=== PATIENT | male | born 1955 | race Caucasian/White ===

== ENCOUNTER 2021-06-21 10:50 | Outpatient (CLI) | payer OTHER, SELFPAY ==
--- NOTE | 2021-06-21 11:05 | XR_ITS ---
WS: [id number] Lumbar spine with flexion, extension, and neutral lateral, 06/21/2021 Clinical Data: VERTEBROGENIC LOW BACK PAIN Comparison: None. Findings: No compression fractures or subluxation is seen there is degenerative disc narrowing at L5-S1. There is anterior osteophyte formation at all lumbar vertebral bodies.. No limitation of motion or subluxation is seen. XR/XR lumbar spine f/e only [id number] Impression: 1. Degenerative disc narrowing at L5-S1. 2. Osteoarthritis L1-L5. 3. Negative for limitation of motion or subluxation on flexion or extension.
== END 2021-06-21 10:51 | disposition home or self-care (01) ==
PROVIDERS: Visit Provider Physician Assistant
DX: M54.41 Lumbago with sciatica, right side (principal); M47.816 Spondylosis without myelopathy or radiculopathy, lumbar region
CPT/HCPCS: 72120

== ENCOUNTER 2021-08-29 12:19 | Emergency (ER) | payer OTHER, SELFPAY ==
[2021-08-29 12:31] VITALS: BP 153/77; PULSE 66; RESP 22; TEMP 36.6; O2SAT 95; BMI 35.8
--- NOTE | 2021-08-29 12:49 | US_ITS ---
WS: [id number] ULTRASOUND-GUIDED THERAPEUTIC PARACENTESIS Procedure, risks, and complications have been explained to the patient. Consent is obtained. Utilizing aseptic technique and 1% buffered lidocaine, a small dermatome was made through which a 5 F rench Yueh catheter was inserted. Approximately 1200 ml of clear peritoneal fluid was obtained witho ut difficulty. No complications encountered. US/US paracentesis abd w [id number] IMPRESSION: Uncomplicated paracentesis yielding 1200 ml of peritoneal fluid.
--- NOTE | 2021-08-29 12:57 | W.ED.ABDPA2 ---
Documented by User: DUSTIN Donovan 08/29/21 12:58 HPI - Abdominal Pain General: Chief Complaint: Abdominal Pain Stated Complaint: abdomen pain/ distention Time Seen by Provider: 08/29/21 14:42 History of Present Illness: HPI narrative: Patient presents with abdominal ascites. Also has bilateral extreme lower extremity edema. Patient history of liver failure awaiting liver transplant. Patient is never had a paracentesis done before but was sent here by primary care for paracentesis. Patient's had increased abdominal girth than 3 inches a last couple days. He does have some shortness of breath with fluid [facility] ED PFSH: Medical History (Updated 08/29/21 @ 18:10 by Golden Callaway MD) Cirrhosis of liver Surgical History (Updated 08/29/21 @ 17:36 by Matt Valladares DO) H/O exploratory laparotomy H/O neck surgery Social History (Updated 08/29/21 @ 17:32 by Matt Valladares DO) Smoking and tobacco status: current some day smoker Alcohol intake: former Course Vital Signs: Vital signs: Vital Signs Temperature 97.9 F 08/29/21 12:31 Pulse Rate 81 08/29/21 18:38 Respiratory Rate 17 08/29/21 18:00 Blood Pressure 132/76 08/29/21 18:38 Pulse Oximetry 99 08/29/21 18:38 MDM - Abdominal Pain MDM Narrative: Medical decision making narrative: Brief history and physical exam was performed as part of the triage process. Due to current ED wait time patient will be placed in waiting room until a room becomes available. Explained to patient he/she will be seen in order of severity. Patient is currently safe to wait in the waiting room until we can get them placed. Patient informed that if condition worsens at any time to please let the front end ui developer know. I spoke with Dr. Adams concerning this patient and also spoke to ultrasound and they are going recommend for paracentesis. Lab Data: Labs: Lab Results 08/29/21 08/29/21 08/29/21 15:17 15:17 15:17 WBC Cancelled Corrected WBC Cancelled RBC Cancelled Hgb Cancelled Hct Cancelled MCV Cancelled MCH Cancelled MCHC Cancelled RDW Cancelled Plt Count Cancelled MPV Cancelled Gran % Cancelled Neut % (Auto) Cancelled Lymph % (Auto) Cancelled [place] % (Auto) Cancelled Eos % (Auto) Cancelled Baso % (Auto) Cancelled Neut # (Auto) Cancelled Lymph # (Auto) Cancelled [place] # (Auto) Cancelled Eos # (Auto) Cancelled Baso # (Auto) Cancelled Absolute Gran (aut o) Cancelled Nucleated RBC % (a uto) Cancelled Nucleated RBCs # Cancelled PT 16.90 SECONDS H S ECONDS (12.1-14.9) INR 1.33 H (0.8-1.2) APTT 36.2 SECONDS SECO NDS (23.9-36.7) Sodium 132 mmol/L L mmol /L (136-145) Potassium 4.0 mmol/L mmol/L (3.5-5.1) Chloride 101 mmol/L mmol/L (98-107) Carbon Dioxide 21 mmol/L L mmol/ L (22-29) Anion Gap 14.0 (5-19) BUN 10 mg/dL mg/dL (8-23) Creatinine 0.5 mg/dL L mg/dL (0.7-1.2) GFR Calculation 167.4 mL/min H mL /min (90-130) Glucose 102 mg/dL mg/dL (65-115) Calculated Osmolal ity 273 mOsm/kg L mOs m/kg (285-295) Calcium 8.1 mg/dL L mg/dL (8.5-10.5) Total Bilirubin 1.1 mg/dL mg/dL (0.15-1.2) AST 48 U/L H U/L (0-40) ALT 32 U/L U/L (0-41) Alkaline Phosphata se 113 IU/L IU/L (40-130) Ammonia Troponin T Baselin e Troponin T 120 Min [place] Troponin T NT-Pro-B Natriuret Pep 294 pg/mL H pg/mL (0-125) Total Protein 7.8 g/dL g/dL (6.6-8.7) Albumin 3.7 g/dL g/dL (3.5-5.2) Globulin 4.1 g/dL g/dL (1.3-4.6) Lipase 32 U/L U/L (13-60) Urine Color Urine Appearance Urine pH Ur Specific Gravit y Urine Protein Urine Glucose (UA) Urine Ketones Urine Blood Urine Nitrate Urine Bilirubin Urine Urobilinogen Ur Leukocyte Jessica ase 08/29/21 08/29/21 08/29/21 15:17 15:17 15:50 WBC Corrected WBC RBC Hgb Hct MCV MCH MCHC RDW Plt Count MPV Gran % Neut % (Auto) Lymph % (Auto) [place] % (Auto) Eos % (Auto) Baso % (Auto) Neut # (Auto) Lymph # (Auto) [place] # (Auto) Eos # (Auto) Baso # (Auto) Absolute Gran (aut o) Nucleated RBC % (a uto) Nucleated RBCs # PT INR APTT Sodium Potassium Chloride Carbon Dioxide Anion Gap BUN Creatinine GFR Calculation Glucose Calculated Osmolal ity Calcium Total Bilirubin AST ALT Alkaline Phosphata se Ammonia 41 umol/L umol/L (16-60) Troponin T Baselin e 16 ng/L H ng/L (0-15) Troponin T 120 Min [place] Troponin T NT-Pro-B Natriuret Pep Total Protein Albumin Globulin Lipase Urine Color Yellow (Yellow) Urine Appearance Clear (CLEAR) Urine pH 7 (5-7) Ur Specific Gravit y 1.010 (1.005-1.030) Urine Protein Neg (Negative) Urine Glucose (UA) Norm (Normal) Urine Ketones Negative (Negative) Urine Blood Neg (Negative) Urine Nitrate Negative (Negative) Urine Bilirubin Neg (Negative) Urine Urobilinogen Norm mg/dL mg/dL (Negative) Ur Leukocyte Jessica ase Negative (Negative) 08/29/21 08/29/21 16:48 17:32 WBC 1.8 10^3/uL L 10^ 3/uL (4.0-10.0) Corrected WBC RBC 3.46 10^6/uL L 10 ^6/uL (4.1-5.3) Hgb 7.9 g/dL L g/dL (11.7-16.6) Hct 27.2 % L % (42.0-52.0) MCV 78.6 fl L fl (80-94) MCH 22.8 pg L pg (28.0-34.0) MCHC 29.0 g/dL L g/dL (30.0-36.0) RDW 14.6 % % (12.1-15.1) Plt Count 59 10^3/cmm L 10^ 3/cmm (130-400) MPV 10.2 fL fL (7.4-10.4) Gran % Neut % (Auto) 75.5 % % Lymph % (Auto) 12.0 % % [place] % (Auto) 9.2 % % Eos % (Auto) 2.2 % % Baso % (Auto) 1.1 % % Neut # (Auto) 1.39 10^3/uL L 10 ^3/uL (1.8-7.7) Lymph # (Auto) 0.2 10^3/uL L 10^ 3/uL (0.8-4.8) [place] # (Auto) 0.2 10^3/uL 10^3/ uL (0.2-0.9) Eos # (Auto) 0.0 10^3/uL 10^3/ uL (0.0-0.8) Baso # (Auto) 0.0 10^3/uL 10^3/ uL (0.0-0.1) Absolute Gran (aut o) Nucleated RBC % (a uto) 0 % % Nucleated RBCs # 0.0 /100WBC /100W BC PT INR APTT Sodium Potassium Chloride Carbon Dioxide Anion Gap BUN Creatinine GFR Calculation Glucose Calculated Osmolal ity Calcium Total Bilirubin AST ALT Alkaline Phosphata se Ammonia Troponin T Baselin e Troponin T 120 Min [place] 13.91 ng/L ng/L (0-15) [place] Troponin T -2.09 ABS# L ABS# (0-10) NT-Pro-B Natriuret Pep Total Protein Albumin Globulin Lipase Urine Color Urine Appearance Urine pH Ur Specific Gravit y Urine Protein Urine Glucose (UA) Urine Ketones Urine Blood Urine Nitrate Urine Bilirubin Urine Urobilinogen Ur Leukocyte Jessica ase Discharge Plan Discharge Patient Disposition: Home Clinical Impression: Cirrhosis of liver, Abdominal pain Condition: Stable Discharge Orders: Discharge ED (Routine); Ordered 08/29/21 Ordered By: Golden Callaway Discharge Diet: Advance as tolerated Discharge Activity: Resume usual activity Patient Instructions: Abdominal Pain (ED) Coding Level of Care Code ED Wharf Tally Clerk for Chg Fwd Exam Comprehensive Documented by User: Matt Valladares DO 08/30/21 05:37 HPI - Abdominal Pain General: Chief Complaint: Abdominal Pain Stated Complaint: abdomen pain/ distention Time Seen by Provider: 08/29/21 14:42 History of Present Illness: HPI narrative: 66-year-old male presents emergency room complaining of abdominal pain and discomfort. He had some chest pain at times as well. He has a history of alcoholic liver cirrhosis and is in the process of getting worked up for transplant.. He at times is getting chest discomfort. He reports some intermittent shortness of breath with activity. Activity does not particularly worsen his chest pain. Denies any diaphoresis. No known history of coronary artery disease patient is not diabetic. He has not had any upper GI bleed or esophageal varices in the past that he is aware of. MD elicited complaint: abdominal pain Pertinent past history: other (End-stage liver disease) Onset (ago): day(s) Pain Consistency: constant Location: Diffuse Severity: mild Quality: cramping Radiation: epigastric Exacerbating factors: other (Exertion) Relieving factors: rest Associated Symptoms: Reports anorexia, bloating, GI cramping and poor appetite; Denies belching, change in bowel habits, change in stool character, chills, coffee ground emesis, constipation, diarrhea, dyspepsia, dysuria, excessive flatus, fever(s), heartburn, hematochezia, hematuria, hematemesis, fecal incontinence, loose stools, melena, nausea, syncope and vomiting Review of Systems Const: Denies: fever(s) or chills ENMT: Denies: throat pain, ear or mastoid pain, nasal discharge or nasal congestion Card: Denies: syncope Resp: Denies: dyspnea, productive cough or non-productive cough GI: Reports: bloating and GI cramping; Denies: nausea, vomiting, hematemesis, coffee ground emesis, heartburn, diarrhea, constipation, belching, excessive flatus, fecal incontinence, change in bowel habits, change in stool character, hematochezia or melena : Denies: dysuria or hematuria Skin/Breast: Denies: rash or pruritus PFSH ED PFSH: Medical History (Updated 08/29/21 @ 18:10 by Golden Callaway MD) Cirrhosis of liver Surgical History (Updated 08/29/21 @ 17:36 by Matt Valladares DO) H/O exploratory laparotomy H/O neck surgery Social History (Updated 08/29/21 @ 17:32 by Matt Valladares DO) Smoking and tobacco status: current some day smoker Alcohol intake: former Physical Exam Const: COMMON NORMALS: no acute distress GENERAL APPEARANCE: cooperative and comfortable ORIENTATION/CONSCIOUSNESS: Yes awake, Yes oriented to person, Yes oriented to place and Yes oriented to time HENMT: COMMON NORMALS: normocephalic, atraumatic and hearing grossly normal bilaterally HEAD & SCALP: normocephalic and atraumatic Neck/C-Spine: COMMON NORMALS: no JVD Resp: COMMON NORMALS: normal respiratory effort, No retractions, No use of accessory muscles and clear to auscultation bilaterally AUSCULTATION: clear to auscultation bilaterally Cardio: COMMON NORMALS: no JVD, regular rate, regular rhythm and No murmurs present (Cardio) RATE: regular rate RHYTHM: regular rhythm GI: COMMON NORMALS: Soft to palpation and No hepatosplenomegaly present INSPECTION: Yes Fluid wave present (Minimal) AUSCULTATION: Yes normoactive bowel sounds PALPATION: Yes Soft to palpation, Yes Tenderness to palpation present (GI) (Mild diffuse tenderness), No Guarding due to palpation present (GI) and Yes No hepatosplenomegaly present PERCUSSION: dullness to percussion and Fluid wave present (Minimal) Extremity: COMMON NORMALS: normal to inspection, capillary refill normal, no clubbing, cyanosis or edema, no calf tenderness and no pedal edema Neuro: SENSORIUM/ORIENTATION: Yes oriented to person, Yes oriented to place and Yes oriented to time Skin: COMMON NORMALS: no rashes or lesions noted GENERAL SKIN EXAM: no rashes or lesions noted Course Vital Signs: Vital signs: Vital Signs Temperature 97.9 F 08/29/21 12:31 Pulse Rate 81 08/29/21 18:38 Respiratory Rate 17 08/29/21 18:00 Blood Pressure 132/76 08/29/21 18:38 Pulse Oximetry 99 08/29/21 18:38 MDM - Abdominal Pain MDM Narrative: Medical decision making narrative: Labs pending at change of shift. Care turned over to Dr. Callaway see his note final diagnosis and disposition. Lab Data: Labs: Lab Results 08/29/21 08/29/21 08/29/21 15:17 15:17 15:17 WBC Cancelled Corrected WBC Cancelled RBC Cancelled Hgb Cancelled Hct Cancelled MCV Cancelled MCH Cancelled MCHC Cancelled RDW Cancelled Plt Count Cancelled MPV Cancelled Gran % Cancelled Neut % (Auto) Cancelled Lymph % (Auto) Cancelled [place] % (Auto) Cancelled Eos % (Auto) Cancelled Baso % (Auto) Cancelled Neut # (Auto) Cancelled Lymph # (Auto) Cancelled [place] # (Auto) Cancelled Eos # (Auto) Cancelled Baso # (Auto) Cancelled Absolute Gran (aut o) Cancelled Nucleated RBC % (a uto) Cancelled Nucleated RBCs # Cancelled PT 16.90 SECONDS H S ECONDS (12.1-14.9) INR 1.33 H (0.8-1.2) APTT 36.2 SECONDS SECO NDS (23.9-36.7) Sodium 132 mmol/L L mmol /L (136-145) Potassium 4.0 mmol/L mmol/L (3.5-5.1) Chloride 101 mmol/L mmol/L (98-107) Carbon Dioxide 21 mmol/L L mmol/ L (22-29) Anion Gap 14.0 (5-19) BUN 10 mg/dL mg/dL (8-23) Creatinine 0.5 mg/dL L mg/dL (0.7-1.2) GFR Calculation 167.4 mL/min H mL /min (90-130) Glucose 102 mg/dL mg/dL (65-115) Calculated Osmolal ity 273 mOsm/kg L mOs m/kg (285-295) Calcium 8.1 mg/dL L mg/dL (8.5-10.5) Total Bilirubin 1.1 mg/dL mg/dL (0.15-1.2) AST 48 U/L H U/L (0-40) ALT 32 U/L U/L (0-41) Alkaline Phosphata se 113 IU/L IU/L (40-130) Ammonia Troponin T Baselin e Troponin T 120 Min [place] Troponin T NT-Pro-B Natriuret Pep 294 pg/mL H pg/mL (0-125) Total Protein 7.8 g/dL g/dL (6.6-8.7) Albumin 3.7 g/dL g/dL (3.5-5.2) Globulin 4.1 g/dL g/dL (1.3-4.6) Lipase 32 U/L U/L (13-60) Urine Color Urine Appearance Urine pH Ur Specific Gravit y Urine Protein Urine Glucose (UA) Urine Ketones Urine Blood Urine Nitrate Urine Bilirubin Urine Urobilinogen Ur Leukocyte Jessica ase 08/29/21 08/29/21 08/29/21 15:17 15:17 15:50 WBC Corrected WBC RBC Hgb Hct MCV MCH MCHC RDW Plt Count MPV Gran % Neut % (Auto) Lymph % (Auto) [place] % (Auto) Eos % (Auto) Baso % (Auto) Neut # (Auto) Lymph # (Auto) [place] # (Auto) Eos # (Auto) Baso # (Auto) Absolute Gran (aut o) Nucleated RBC % (a uto) Nucleated RBCs # PT INR APTT Sodium Potassium Chloride Carbon Dioxide Anion Gap BUN Creatinine GFR Calculation Glucose Calculated Osmolal ity Calcium Total Bilirubin AST ALT Alkaline Phosphata se Ammonia 41 umol/L umol/L (16-60) Troponin T Baselin e 16 ng/L H ng/L (0-15) Troponin T 120 Min [place] Troponin T NT-Pro-B Natriuret Pep Total Protein Albumin Globulin Lipase Urine Color Yellow (Yellow) Urine Appearance Clear (CLEAR) Urine pH 7 (5-7) Ur Specific Gravit y 1.010 (1.005-1.030) Urine Protein Neg (Negative) Urine Glucose (UA) Norm (Normal) Urine Ketones Negative (Negative) Urine Blood Neg (Negative) Urine Nitrate Negative (Negative) Urine Bilirubin Neg (Negative) Urine Urobilinogen Norm mg/dL mg/dL (Negative) Ur Leukocyte Jessica ase Negative (Negative) 08/29/21 08/29/21 16:48 17:32 WBC 1.8 10^3/uL L 10^ 3/uL (4.0-10.0) Corrected WBC RBC 3.46 10^6/uL L 10 ^6/uL (4.1-5.3) Hgb 7.9 g/dL L g/dL (11.7-16.6) Hct 27.2 % L % (42.0-52.0) MCV 78.6 fl L fl (80-94) MCH 22.8 pg L pg (28.0-34.0) MCHC 29.0 g/dL L g/dL (30.0-36.0) RDW 14.6 % % (12.1-15.1) Plt Count 59 10^3/cmm L 10^ 3/cmm (130-400) MPV 10.2 fL fL (7.4-10.4) Gran % Neut % (Auto) 75.5 % % Lymph % (Auto) 12.0 % % [place] % (Auto) 9.2 % % Eos % (Auto) 2.2 % % Baso % (Auto) 1.1 % % Neut # (Auto) 1.39 10^3/uL L 10 ^3/uL (1.8-7.7) Lymph # (Auto) 0.2 10^3/uL L 10^ 3/uL (0.8-4.8) [place] # (Auto) 0.2 10^3/uL 10^3/ uL (0.2-0.9) Eos # (Auto) 0.0 10^3/uL 10^3/ uL (0.0-0.8) Baso # (Auto) 0.0 10^3/uL 10^3/ uL (0.0-0.1) Absolute Gran (aut o) Nucleated RBC % (a uto) 0 % % Nucleated RBCs # 0.0 /100WBC /100W BC PT INR APTT Sodium Potassium Chloride Carbon Dioxide Anion Gap BUN Creatinine GFR Calculation Glucose Calculated Osmolal ity Calcium Total Bilirubin AST ALT Alkaline Phosphata se Ammonia Troponin T Baselin e Troponin T 120 Min [place] 13.91 ng/L ng/L (0-15) [place] Troponin T -2.09 ABS# L ABS# (0-10) NT-Pro-B Natriuret Pep Total Protein Albumin Globulin Lipase Urine Color Urine Appearance Urine pH Ur Specific Gravit y Urine Protein Urine Glucose (UA) Urine Ketones Urine Blood Urine Nitrate Urine Bilirubin Urine Urobilinogen Ur Leukocyte Jessica ase Discharge Plan Discharge Patient Disposition: Home Clinical Impression: Cirrhosis of liver, Abdominal pain Condition: Stable Discharge Orders: Discharge ED (Routine); Ordered 08/29/21 Ordered By: Golden Callaway Discharge Diet: Advance as tolerated Discharge Activity: Resume usual activity Patient Instructions: Abdominal Pain (ED) Coding Level of Care Code ED Wharf Tally Clerk for Chg Fwd Exam Comprehensive Documented by User: Golden Callaway MD 08/29/21 18:21 HPI - Abdominal Pain General: Chief Complaint: Abdominal Pain Stated Complaint: abdomen pain/ distention Time Seen by Provider: 08/29/21 14:42 PFSH ED PFSH: Medical History (Updated 08/29/21 @ 18:10 by Golden Callaway MD) Cirrhosis of liver Surgical History (Updated 08/29/21 @ 17:36 by Matt Valladares DO) H/O exploratory laparotomy H/O neck surgery Social History (Updated 08/29/21 @ 17:32 by Matt Valladares DO) Smoking and tobacco status: current some day smoker Alcohol intake: former Course Vital Signs: Vital signs: Vital Signs Temperature 97.9 F 08/29/21 12:31 Pulse Rate 81 08/29/21 18:38 Respiratory Rate 17 08/29/21 18:00 Blood Pressure 132/76 08/29/21 18:38 Pulse Oximetry 99 08/29/21 18:38 MDM - Abdominal Pain MDM Narrative: Medical decision making narrative: Patient presents here with abdominal pain likely from cirrhosis he had a paracentesis here blood work here is all normal he is stable for discharge is to follow-up with PCP and return if worsening. Lab Data: Labs: Lab Results 08/29/21 08/29/21 08/29/21 15:17 15:17 15:17 WBC Cancelled Corrected WBC Cancelled RBC Cancelled Hgb Cancelled Hct Cancelled MCV Cancelled MCH Cancelled MCHC Cancelled RDW Cancelled Plt Count Cancelled MPV Cancelled Gran % Cancelled Neut % (Auto) Cancelled Lymph % (Auto) Cancelled [place] % (Auto) Cancelled Eos % (Auto) Cancelled Baso % (Auto) Cancelled Neut # (Auto) Cancelled Lymph # (Auto) Cancelled [place] # (Auto) Cancelled Eos # (Auto) Cancelled Baso # (Auto) Cancelled Absolute Gran (aut o) Cancelled Nucleated RBC % (a uto) Cancelled Nucleated RBCs # Cancelled PT 16.90 SECONDS H S ECONDS (12.1-14.9) INR 1.33 H (0.8-1.2) APTT 36.2 SECONDS SECO NDS (23.9-36.7) Sodium 132 mmol/L L mmol /L (136-145) Potassium 4.0 mmol/L mmol/L (3.5-5.1) Chloride 101 mmol/L mmol/L (98-107) Carbon Dioxide 21 mmol/L L mmol/ L (22-29) Anion Gap 14.0 (5-19) BUN 10 mg/dL mg/dL (8-23) Creatinine 0.5 mg/dL L mg/dL (0.7-1.2) GFR Calculation 167.4 mL/min H mL /min (90-130) Glucose 102 mg/dL mg/dL (65-115) Calculated Osmolal ity 273 mOsm/kg L mOs m/kg (285-295) Calcium 8.1 mg/dL L mg/dL (8.5-10.5) Total Bilirubin 1.1 mg/dL mg/dL (0.15-1.2) AST 48 U/L H U/L (0-40) ALT 32 U/L U/L (0-41) Alkaline Phosphata se 113 IU/L IU/L (40-130) Ammonia Troponin T Baselin e Troponin T 120 Min [place] Troponin T NT-Pro-B Natriuret Pep 294 pg/mL H pg/mL (0-125) Total Protein 7.8 g/dL g/dL (6.6-8.7) Albumin 3.7 g/dL g/dL (3.5-5.2) Globulin 4.1 g/dL g/dL (1.3-4.6) Lipase 32 U/L U/L (13-60) Urine Color Urine Appearance Urine pH Ur Specific Gravit y Urine Protein Urine Glucose (UA) Urine Ketones Urine Blood Urine Nitrate Urine Bilirubin Urine Urobilinogen Ur Leukocyte Jessica ase 01/18/22 01/18/22 01/18/22 15:17 15:17 15:50 WBC Corrected WBC RBC Hgb Hct MCV MCH MCHC RDW Plt Count MPV Gran % Neut % (Auto) Lymph % (Auto) [place] % (Auto) Eos % (Auto) Baso % (Auto) Neut # (Auto) Lymph # (Auto) [place] # (Auto) Eos # (Auto) Baso # (Auto) Absolute Gran (aut o) Nucleated RBC % (a uto) Nucleated RBCs # PT INR APTT Sodium Potassium Chloride Carbon Dioxide Anion Gap BUN Creatinine GFR Calculation Glucose Calculated Osmolal ity Calcium Total Bilirubin AST ALT Alkaline Phosphata se Ammonia 41 umol/L umol/L (16-60) Troponin T Baselin e 16 ng/L H ng/L (0-15) Troponin T 120 Min [place] Troponin T NT-Pro-B Natriuret Pep Total Protein Albumin Globulin Lipase Urine Color Yellow (Yellow) Urine Appearance Clear (CLEAR) Urine pH 7 (5-7) Ur Specific Gravit y 1.010 (1.005-1.030) Urine Protein Neg (Negative) Urine Glucose (UA) Norm (Normal) Urine Ketones Negative (Negative) Urine Blood Neg (Negative) Urine Nitrate Negative (Negative) Urine Bilirubin Neg (Negative) Urine Urobilinogen Norm mg/dL mg/dL (Negative) Ur Leukocyte Jessica ase Negative (Negative) 08/29/21 08/29/21 16:48 17:32 WBC 1.8 10^3/uL L 10^ 3/uL (4.0-10.0) Corrected WBC RBC 3.46 10^6/uL L 10 ^6/uL (4.1-5.3) Hgb 7.9 g/dL L g/dL (11.7-16.6) Hct 27.2 % L % (42.0-52.0) MCV 78.6 fl L fl (80-94) MCH 22.8 pg L pg (28.0-34.0) MCHC 29.0 g/dL L g/dL (30.0-36.0) RDW 14.6 % % (12.1-15.1) Plt Count 59 10^3/cmm L 10^ 3/cmm (130-400) MPV 10.2 fL fL (7.4-10.4) Gran % Neut % (Auto) 75.5 % % Lymph % (Auto) 12.0 % % [place] % (Auto) 9.2 % % Eos % (Auto) 2.2 % % Baso % (Auto) 1.1 % % Neut # (Auto) 1.39 10^3/uL L 10 ^3/uL (1.8-7.7) Lymph # (Auto) 0.2 10^3/uL L 10^ 3/uL (0.8-4.8) [place] # (Auto) 0.2 10^3/uL 10^3/ uL (0.2-0.9) Eos # (Auto) 0.0 10^3/uL 10^3/ uL (0.0-0.8) Baso # (Auto) 0.0 10^3/uL 10^3/ uL (0.0-0.1) Absolute Gran (aut o) Nucleated RBC % (a uto) 0 % % Nucleated RBCs # 0.0 /100WBC /100W BC PT INR APTT Sodium Potassium Chloride Carbon Dioxide Anion Gap BUN Creatinine GFR Calculation Glucose Calculated Osmolal ity Calcium Total Bilirubin AST ALT Alkaline Phosphata se Ammonia Troponin T Baselin e Troponin T 120 Min [place] 13.91 ng/L ng/L (0-15) [place] Troponin T -2.09 ABS# L ABS# (0-10) NT-Pro-B Natriuret Pep Total Protein Albumin Globulin Lipase Urine Color Urine Appearance Urine pH Ur Specific Gravit y Urine Protein Urine Glucose (UA) Urine Ketones Urine Blood Urine Nitrate Urine Bilirubin Urine Urobilinogen Ur Leukocyte Jessica ase Discharge Plan Discharge Patient Disposition: Home Clinical Impression: Cirrhosis of liver, Abdominal pain Condition: Stable Discharge Orders: Discharge ED (Routine); Ordered 08/29/21 Ordered By: Golden Callaway Discharge Diet: Advance as tolerated Discharge Activity: Resume usual activity Patient Instructions: Abdominal Pain (ED) Coding Level of Care Code ED Wharf Tally Clerk for Tomg Fwd Exam Comprehensive
[2021-08-29 15:09] VITALS: BP 171/85; PULSE 66; RESP 18; O2SAT 100
--- NOTE | 2021-08-29 15:18 | ECG_ITS ---
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 Measurements Intervals [place] Rate: 51 P: 38 NE: 192 QRS: 116 QRSD: 162 T: 22 QT: 492 QTc: 455 Interpretive Statements SINUS BRADYCARDIA WITH SINUS ARRHYTHMIA LEFT BUNDLE BRANCH BLOCK [120+ ms QRS DURATION, 80+ ms Q/S IN V1/V2, 85+ ms R IN I/aVL/V5/V6] No previous ECG available for comparison Electronically Signed On 08-30-2021 17:42:40 DETECTIVE SERGEANT by Tiago Avendano M.D. [id number]
[2021-08-29 15:46] LABS: INR 1.33 (0.8-1.2)
[2021-08-29 15:47] LABS: Partial Thromboplastin Time 36.2 SECONDS (23.9-36.7)
[2021-08-29 15:58] LABS: Troponin(5th) Baseline 16 ng/L (0-15)
[2021-08-29 16:00] VITALS: BP 125/70; PULSE 57; RESP 20; O2SAT 98
[2021-08-29 16:03] LABS: Ammonia 41 umol/L (16-60)
[2021-08-29 16:05] LABS: Add Urine Microscopic? NO; Charge for UA Resulting for Rev
[2021-08-29 16:12] LABS: Bilirubin Urine Neg (Negative); Blood Urine Neg (Negative); Glucose Urine UA Norm (Normal); Ketones Urine Negative (Negative); Leukocyte Esterase Urine Negative (Negative); Nitrate Urine Negative (Negative); Protein Urine Neg (Negative); Urine Appearance Clear (CLEAR); Urine Color Yellow (Yellow); Urobilinogen Urine Norm (Negative); pH Urine 7 (5-7)
[2021-08-29 16:15] LABS: Alanine Aminotransferase 32 U/L (0-41); Albumin Level 3.7 g/dL (3.5-5.2); Alkaline Phosphatase 113 IU/L (40-130); Aspartate Amino Transferase 48 U/L (0-40); Blood Urea Nitrogen 10 mg/dL (8-23); Calcium 8.1 mg/dL (8.5-10.5); Carbon Dioxide 21 mmol/L (22-29); Chloride 101 mmol/L (98-107); Globulin 4.1 g/dL (1.3-4.6); Glomerular Filtration Rate 167.4 mL/min (90-130); Glucose 102 mg/dL (65-115); Lipase 32 U/L (13-60); NT Pro B Type Natriuretic Pept 294 pg/mL (0-125); Osmolality Calculated 273 mOsm/kg (285-295); Sodium 132 mmol/L (136-145); Total Bilirubin 1.1 mg/dL (0.15-1.2); Total Protein 7.8 g/dL (6.6-8.7)
[2021-08-29 17:00] VITALS: BP 143/66; PULSE 86; RESP 15; O2SAT 98
[2021-08-29 17:04] LABS: Basophils % 1.1 %; Eosinophils % 2.2 %; Hematocrit 27.2 % (42.0-52.0); Hemoglobin 7.9 g/dL (11.7-16.6); Lymphocytes # 0.2 10^3/uL (0.8-4.8); Mean Corpuscular Hemoglobin 22.8 pg (28.0-34.0); Mean Corpuscular Volume 78.6 fl (80-94); Mean Platelet Volume 10.2 fL (7.4-10.4); Monocytes # 0.2 10^3/uL (0.2-0.9); Monocytes % 9.2 %; Neutrophils # 1.39 10^3/uL (1.8-7.7); Neutrophils % 75.5 %; Nucleated Red Blood Cells % 0 %; Platelet Count 59 10^3/cmm (130-400); Red Blood Count 3.46 10^6/uL (4.1-5.3); Red Cell Distribution Width 14.6 % (12.1-15.1); White Blood Count 1.8 10^3/uL (4.0-10.0)
--- NOTE | 2021-08-29 17:18 | ECG_ITS ---
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 Measurements Intervals [place] Rate: 50 P: 46 ND: 190 QRS: 12 QRSD: 162 T: 51 QT: 522 QTc: 479 Interpretive Statements SINUS BRADYCARDIA WITH SINUS ARRHYTHMIA LEFT BUNDLE BRANCH BLOCK [120+ ms QRS DURATION, 80+ ms Q/S IN V1/V2, 85+ ms R IN I/aVL/V5/V6] Compared to ECG 08/29/2021 15:45:22 No significant changes Electronically Signed On 08-31-2021 19:28:[address] MAINTENANCE WORKER by Norma Jay M.D. [id number]
[2021-08-29 17:59] LABS: Troponin 5 2HR 13.91 ng/L (0-15)
[2021-08-29 18:00] VITALS: BP 135/69; PULSE 59; RESP 17; O2SAT 99
[2021-08-29 18:00] LABS: Troponin 5 2HR Delta -2.09 ABS# (0-10)
[2021-08-29 18:38] VITALS: BP 132/76; PULSE 81; O2SAT 99
== END 2021-08-29 18:39 | disposition home or self-care (01) ==
PROVIDERS: Family Medicine; Nurse Practitioner Family; Emergency Provider Emergency Medicine
DX: R10.9 Unspecified abdominal pain (principal); K74.60 Unspecified cirrhosis of liver; Z76.82 Awaiting organ transplant status; F17.210 Nicotine dependence, cigarettes, uncomplicated
CPT/HCPCS: 36415; 49083; 80053; 81003; 82140; 83690; 83880; 84484; 85025; 85610; 85730; 93005; 99283

== ENCOUNTER 2022-03-30 17:10 | Emergency (ER) | payer MEDICARE, SELFPAY ==
[2022-03-30 17:14] VITALS: BP 156/72; PULSE 54; RESP 16; TEMP 36.5; O2SAT 97; BMI 32.3
--- NOTE | 2022-03-30 17:28 | ECG_ITS ---
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 Measurements Intervals [place] Rate: 51 P: 31 [place]: 204 QRS: -42 QRSD: 176 T: 50 QT: 518 QTc: 481 Interpretive Statements SINUS BRADYCARDIA LEFT AXIS DEVIATION [QRS AXIS < -30] LEFT BUNDLE BRANCH BLOCK [120+ ms QRS DURATION, 80+ ms Q/S IN V1/V2, 85+ ms R IN I/aVL/V5/V6] Compared to ECG 08/29/2021 18:30:10 Left-axis deviation now present Sinus arrhythmia no longer present Electronically Signed On 03-30-2022 17:43:16 CDT by Kvng Mckeon M.D. [id number]
--- NOTE | 2022-03-30 17:43 | XRR_ITS ---
PROCEDURE INFORMATION: Exam: XR Chest Exam date and time: 03/30/2022 5:48 PM Age: 66 years old Clinical indication: Cough; Additional info: Covid + TECHNIQUE: Imaging protocol: Radiologic exam of the chest. Views: 1 view. COMPARISON: No relevant prior studies available. FINDINGS: Lungs: Unremarkable. No consolidation. Pleural spaces: Unremarkable. No pleural effusion. No pneumothorax. Heart/Mediastinum: Unremarkable. No cardiomegaly. Bones/joints: ACDF hardware noted in the lower cervical spine. Visualized osseous structures are intact. XR/XR chest 1V portable [id number] IMPRESSION: No acute findings.
--- NOTE | 2022-03-30 18:29 | ED_ITS ---
HPI - COVID General: Chief Complaint: Upper Respiratory Infection Stated Complaint: covid pnemonia Time Seen by Provider: 03/30/22 17:52 Triage information: Has fever, cough or shortness of breath . Exposure to COVID + person last 14 days History of Present Illness: Patient is a 66-year-old male comes to the ED with COVID symptoms. His symptoms started approximately 1 week ago. He tested positive for COVID-19 on Saturday, March 26 at his PCP. He is complaining of having a productive cough, burning pain in the lungs when he brings and fatigue. He says he has had COVID-19 before and currently his symptoms are a lot more mild than previous COVID infection. Patient was prescribed Z-Darren course on Saturday and just finished taking the last dose yesterday. Denies any nausea or vomiting. COVID 19 common symptoms: positive productive cough; negative fever(s), chills, non-productive cough, dyspnea, fatigue, headache(s), throat pain, nasal congestion, nausea, vomiting or diarrhea COVID 19 other sytmptoms: negative chest pain COVID Results: No Data to Display Review of Systems Const: Denies: fever(s), chills or fatigue Eyes: Denies: change in vision or eye discomfort ENMT: Denies: throat pain, odynophagia, nasal discharge or nasal congestion Card: Denies: chest pain, palpitations, edema, swelling of feet/ankles, dyspnea on exertion or orthopnea Resp: Reports: productive cough; Denies: dyspnea or non-productive cough GI: Denies: abdominal pain, nausea, vomiting, diarrhea, constipation or hematochezia : Denies: flank pain, difficulty urinating, dysuria or hematuria Musc: Denies: neck pain, back pain or extremity swelling Skin/Breast: Denies: rash or new lesions Neuro: Denies: headache(s), numbness in extremities or weakness in extremities PFSH ED PFSH: Medical History Cirrhosis of liver Surgical History H/O exploratory laparotomy H/O neck surgery Social History Smoking and tobacco status: current some day smoker Alcohol intake: former Physical Exam Const: COMMON NORMALS: no acute distress, patient oriented x3, healthy appearing and alert GENERAL APPEARANCE: cooperative and comfortable HENMT: COMMON NORMALS: normocephalic HEAD & SCALP: normocephalic MOUTH: Normal oral and palatal mucosa present THROAT: posterior oropharynx normal and uvula midline Neck/C-Spine: COMMON NORMALS: supple GENERAL: Yes normal visual inspection Resp: COMMON NORMALS: normal respiratory effort, No retractions, No use of accessory muscles and clear to auscultation bilaterally AUSCULTATION: clear to auscultation bilaterally Cardio: COMMON NORMALS: regular rate, regular rhythm, S1 normal heart sound present, S2 normal heart sound present, No gallops present (Cardio), No clicks present (Cardio), No murmurs present (Cardio) and Peripheral pulses 2+ throughout RATE: regular rate RHYTHM: regular rhythm HEART SOUNDS: S1 normal heart sound present and S2 normal heart sound present PERIPHERAL PULSES: Peripheral pulses 2+ throughout GI: COMMON NORMALS: Normal to inspection, nondistended, normoactive bowel sounds present, Soft to palpation, non-tender and no masses PALPATION: Yes Soft to palpation : COMMON NORMALS: Yes no CVA tenderness BLADDER/KIDNEY EXAM: Yes no CVA tenderness Back/Pelvis: COMMON NORMALS: no CVA tenderness Extremity: COMMON NORMALS: normal to inspection Neuro: COMMON NORMALS: patient oriented x3 SENSORIUM/ORIENTATION: Yes alert GAIT: Yes Normal gait present Skin: GENERAL SKIN EXAM: dry skin Course Vital Signs: Vital signs: Vital Signs Temperature 98.3 F 03/30/22 18:44 Pulse Rate 52 L 03/30/22 18:44 Respiratory Rate 16 03/30/22 17:14 Blood Pressure 156/72 03/30/22 17:14 Pulse Oximetry 97 03/30/22 18:44 Oxygen Delivery Me thod 03/30/22 17:14 [facility] - COVID Medical Decision Making Patient is a 66-year-old male comes to the ED with COVID-19. He had a positive COVID-19 test at PCP. He has a cough that is productive. He describes the symptoms as very mild. He just finished taking a Z-Darren. Vitals are stable. Patient appears nontoxic in no acute distress or pain. Exam is benign. Chest x-ray showed no acute findings. Patient was diagnosed with COVID-19 and was stable for discharge home. He was sent home with a prescription for prednisone and told to follow-up with his PCP in the next week for reevaluation. Return to ED precautions given. Patient understood and agreed with plan. Lab Data Radiology Impressions Chest X-Ray 03/30/22 17:43 IMPRESSION: No acute findings. No Data to Display Discharge Plan Discharge Patient Disposition: Home Clinical Impression: COVID-19 Condition: Stable Prescriptions: New prednisone 5 mg tablets,dose pack See Rx Instructions .ROUTE .COMPLEX Qty: 21 0RF Rx Instructions: prednisone 5 mg: take 8 tablets (40 mg) on Day 1; 7 tablets (35 mg) on Day 2; then decrease by 1 tablet every day until finished Discharge Orders: Discharge ED (Routine); Ordered 03/30/22 Ordered By: Ken Montelongo Discharge Diet: Regular Discharge Activity: Increase activity as tolerated Patient Instructions: COVID-19 (Coronavirus Disease 2019) (ED) Activity Restrictions/Additional Instructions: Follow-up with medical provider as directed in the next 5 to 7 days reevaluation. Check your oxygen levels at home using your pulse ox. Take medications as prescribed. Return to the ER or your medical provider if condition worsens. Please read and understand discharge instructions. Thank you for choosing [facility] for your healthcare needs today. Please realize this is an emergency room and that we are providing you with a medical screening exam and this may not be complete and all inclusive of all the testing and or work up that you may need to determine your ailment or severity of your illness. It is very important that you follow up as instructed or that you return to the Emergency Department should you have concerns or if your condition changes or worsens in any way. Coding Level of Care Code ED Manager Outpatient for Sandro Rod Exam Comprehensive
[2022-03-30 18:44] VITALS: PULSE 52; TEMP 36.8; O2SAT 97
== END 2022-03-30 18:59 | disposition home or self-care (01) ==
PROVIDERS: Emergency Provider Physician Assistant
DX: U07.1 COVID-19 (principal); F17.210 Nicotine dependence, cigarettes, uncomplicated
CPT/HCPCS: 71045; 93005; 99284

== ENCOUNTER 2022-11-20 13:31 | Emergency (ER) | payer MEDICARE, SELFPAY ==
[2022-11-20 13:47] VITALS: BP 137/69; PULSE 45; RESP 16; TEMP 36.8; O2SAT 96
--- NOTE | 2022-11-20 14:34 | USCV_ITS ---
Vel Bassett Age: 67 Gender: M : 1955 Exam Date: 11/20/2022 15:00 Ordering Phys: Ken Montelongo Technologist: Exam Location: [facility]_ Indication: bilat edema PROCEDURES: The venous duplex Doppler examination of both lower extremities was performed in the standard fashion. The following venous structures were evaluated: common femoral vein, profunda vein, proximal portion of the greater saphenous vein, superficial femoral vein, and the popliteal vein. In addition, the posterior tibial and peroneal trunk were evaluated. FINDINGS: Normal 2-D Doppler and augmentation and compressibility throughout the lower extremity venous structures. Additional imaging through the proximal calf veins also reveals no thrombus. Limited evaluation of the greater saphenous vein is patent with no thrombus. CONCLUSIONS No evidence of right lower extremity DVT. No evidence of left lower extremity DVT. Attila Wick MD (Electronically Signed) Final Date: 20 November 2022 16:59 S
--- NOTE | 2022-11-20 14:34 | XR_ITS ---
WS: [id number] EXAMINATION: XR chest 1V portable [id number] REASON FOR EXAM: low heart rate COMPARISON: 03/30/2022 ORDER DATE: 11/20/2022 2:37 PM TECHNIQUE: A single, portable frontal chest x-ray was obtained. X-RAY FINDINGS: The lungs are clear. Pleural spaces are clear. No pleural effusions or pneumothorax. Cardiomediastinal silhouette is normal. No evidence for pulmonary edema. Soft tissue and osseous structures are unremarkable. No tubes or lines are present. Cervical fusion change at C6-7. XR/XR chest 1V portable [id number] IMPRESSION: Unremarkable frontal portable chest x-ray.
--- NOTE | 2022-11-20 14:34 | ECG_ITS ---
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 Measurements Intervals [place] Rate: 46 P: 67 [place]: 206 QRS: 85 QRSD: 174 T: 15 QT: 531 QTc: 466 Interpretive Statements SINUS BRADYCARDIA INTRAVENTRICULAR CONDUCTION DELAY [130+ ms QRS DURATION] Compared to ECG 03/30/2022 17:33:34 Intraventricular conduction delay now present Left-axis deviation no longer present Left bundle-branch block no longer present Electronically Signed On 11-21-2022 2:19:00 CDT by Tiago Avendano M.D. [id number]
--- NOTE | 2022-11-20 14:35 | ED_ITS ---
Documented by User: SAURABH Hill 11/21/22 22:26 HPI - Extremity Problem General: Chief complaint: Extremity Problem,Nontraumatic Stated complaint: edema/rash on leg Time Seen by Provider: 11/20/22 13:55 History of Present Illness: Patient is a 67-year-old male comes to the ED with bilateral lower leg edema. Past medical history of liver cirrhosis. Patient's leg edema is a chronic issue but has gotten a lot worse over the past couple days. Patient is on 20 mg of furosemide a day. Patient also is concerned about his low heart rate that is around 45 bpm. He denies any symptoms. On his right lower leg by medial side of ankle patient has a red rash. Denies any pain with rash, warmth or itching. Patient was first seen at urgent care and they told patient to come here to the ED for further evaluation. Denies any chest pain, shortness of breath, hemoptysis, nausea/vomiting, abdominal pain, bladder or bowel symptoms. Associated symptoms: Reports rash; Deny chest pain or fever(s) Review of Systems Const: Denies: fever(s), chills or fatigue Eyes: Denies: change in vision or eye discomfort ENMT: Denies: throat pain, odynophagia, nasal discharge or nasal congestion Card: Denies: chest pain, palpitations, edema, swelling of feet/ankles, dyspnea on exertion or orthopnea Resp: Denies: dyspnea, productive cough or non-productive cough GI: Denies: abdominal pain, nausea, vomiting, diarrhea, constipation or hematochezia : Denies: flank pain, difficulty urinating, dysuria or hematuria Musc: Reports: extremity swelling (Bilateral leg edema); Denies: neck pain or back pain Skin/Breast: Reports: rash; Denies: new lesions Neuro: Denies: headache(s), numbness in extremities or weakness in extremities [facility] ED PFSH: Medical History Cirrhosis of liver Surgical History H/O exploratory laparotomy H/O neck surgery Social History Smoking and tobacco status: current some day smoker Alcohol intake: former Physical Exam Const: COMMON NORMALS: no acute distress, patient oriented x3 and alert HENMT: COMMON NORMALS: normocephalic HEAD & SCALP: normocephalic MOUTH: Normal oral and palatal mucosa present THROAT: posterior oropharynx normal and uvula midline Neck/C-Spine: COMMON NORMALS: supple GENERAL: Yes normal visual inspection Resp: COMMON NORMALS: normal respiratory effort, No retractions, No use of accessory muscles and clear to auscultation bilaterally AUSCULTATION: clear to auscultation bilaterally Cardio: COMMON NORMALS: regular rate, regular rhythm, S1 normal heart sound present, S2 normal heart sound present, No gallops present (Cardio), No clicks present (Cardio), No murmurs present (Cardio) and Peripheral pulses 2+ throughout RATE: regular rate RHYTHM: regular rhythm HEART SOUNDS: S1 normal heart sound present and S2 normal heart sound present PERIPHERAL PULSES: Peripheral pulses 2+ throughout GI: COMMON NORMALS: Normal to inspection, nondistended, normoactive bowel sounds present, Soft to palpation, non-tender and no masses PALPATION: Yes Soft to palpation : COMMON NORMALS: Yes no CVA tenderness BLADDER/KIDNEY EXAM: Yes no CVA tenderness Back/Pelvis: COMMON NORMALS: no CVA tenderness Extremity: COMMON NORMALS: normal to inspection Neuro: COMMON NORMALS: patient oriented x3 SENSORIUM/ORIENTATION: Yes alert GAIT: Yes Normal gait present Skin: GENERAL SKIN EXAM: dry skin Course Vital Signs: Vital signs: Vital Signs Temperature 98.2 F 11/20/22 13:47 Pulse Rate 51 L 11/20/22 17:01 Respiratory Rate 16 11/20/22 17:01 Blood Pressure 133/65 11/20/22 17:01 Pulse Oximetry 97 11/20/22 17:01 Oxygen Delivery Me thod Room Air 11/20/22 13:47 MDM - Extremity (Nontraumatic) Medical Decision Making Patient is a 67-year-old male comes to the ED with bilateral lower leg edema. Past medical history of liver cirrhosis. Patient's leg edema is a chronic issue but has gotten a lot worse over the past couple days. Patient is on 20 mg of furosemide a day. Patient also is concerned about his low heart rate that is around 45 bpm. He denies any symptoms. On his right lower leg by medial side of ankle patient has a red rash. Denies any pain with rash, warmth or itching. Patient was first seen at urgent care and they told patient to come here to the ED for further evaluation. Denies any chest pain, shortness of breath, hemoptysis, nausea/vomiting, abdominal pain, bladder or bowel symptoms. Pulse 51 and the rest of vitals are stable. Exam of patient is benign. He appears nontoxic in no acute distress. EKG shows sinus bradycardia with no ST segment ration or depression seen. Dr. Valladares reviewed EKG and agreed. Chest x-ray shows no acute findings. CBC and CMP were unremarkable. Ultrasound venous duplex of lower extremities bilaterally showed no DVTs. BNP 136. Patient given dose of Lasix here in the ED and was stable for discharge home. Diagnosed with bilateral lower extremity edema and told to follow-up with PCP in the next week for reevaluation. Elevate legs to help with swelling and wear compression stockings. Return to ED precautions given. Dr. Valladares reviewed case and agreed with plan. Lab Data I reviewed the patient's lab results. 11/20/22 15:00 11/20/22 15:00 Radiology Impressions Chest X-Ray 11/20/22 14:34 IMPRESSION: Unremarkable frontal portable chest x-ray. Laboratory Results WBC 2.3 10^3/uL (4.0-10.0) L 11/20/22 15:00 RBC 3.85 10^6/uL (4.1-5.3) L 11/20/22 15:00 Hgb 9.6 g/dL (11.7-16.6) L 11/20/22 15:00 Hct 30.8 % (42.0-52.0) L 11/20/22 15:00 MCV 80.0 fl (80-94) 11/20/22 15:00 MCH 24.9 pg (28.0-34.0) L 11/20/22 15:00 MCHC 31.2 g/dL (30.0-36.0) 11/20/22 15:00 RDW 15.8 % (12.1-15.1) H 11/20/22 15:00 Plt Count 69 10^3/cmm (130-400) L 11/20/22 15:00 MPV 9.9 fL (7.4-10.4) 11/20/22 15:00 Neut % (Auto) 74.7 % 11/20/22 15:00 Lymph % (Auto) 14.6 % 11/20/22 15:00 [place] % (Auto) 7.3 % 11/20/22 15:00 Eos % (Auto) 2.1 % 11/20/22 15:00 Baso % (Auto) 0.9 % 11/20/22 15:00 Neut # (Auto) 1.74 10^3/uL (1.8-7.7) L 11/20/22 15:00 Lymph # (Auto) 0.3 10^3/uL (0.8-4.8) L 11/20/22 15:00 [place] # (Auto) 0.2 10^3/uL (0.2-0.9) 11/20/22 15:00 Eos # (Auto) 0.1 10^3/uL (0.0-0.8) 11/20/22 15:00 Baso # (Auto) 0.0 10^3/uL (0.0-0.1) 11/20/22 15:00 Nucleated RBC % (auto) 0 % 11/20/22 15:00 Nucleated RBCs # 0.0 /100WBC 11/20/22 15:00 Sodium 137 mmol/L (136-145) 11/20/22 15:00 Potassium 4.4 mmol/L (3.5-5.1) 11/20/22 15:00 Chloride 103 mmol/L (98-107) 11/20/22 15:00 Carbon Dioxide 27 mmol/L (22-29) 11/20/22 15:00 Anion Gap 11.4 (5-19) 11/20/22 15:00 BUN 13 mg/dL (8-23) 11/20/22 15:00 Creatinine 0.6 mg/dL (0.7-1.2) L 11/20/22 15:00 GFR Calculation 135.2 mL/min (90-130) H 11/20/22 15:00 Glucose 101 mg/dL (65-115) 11/20/22 15:00 Calculated Osmolality 284 mOsm/kg (285-295) L 11/20/22 15:00 Calcium 8.7 mg/dL (8.5-10.5) 11/20/22 15:00 Total Bilirubin 0.5 mg/dL (0.15-1.2) 11/20/22 15:00 AST 63 U/L (0-40) H 11/20/22 15:00 ALT 37 U/L (0-41) 11/20/22 15:00 Alkaline Phosphatase 106 U/L (40-130) 11/20/22 15:00 NT-Pro-B Natriuret Pep 136 pg/mL (0-125) H 11/20/22 15:00 Total Protein 7.0 g/dL (6.6-8.7) 11/20/22 15:00 Albumin 3.2 g/dL (3.5-5.2) L 11/20/22 15:00 Globulin 3.8 g/dL (1.3-4.6) 11/20/22 15:00 EKG Data EKG 1: EKG interpretation date: 11/20/22 Interpretation: Sinus bradycardia, 46 bpm, no ST segment elevation or depression seen. Dr. Carreno reviewed EKG and agreed nothing acute. Discharge Plan Discharge Patient Disposition: Home Clinical Impression: Bilateral leg edema, Rash Condition: Stable Prescriptions: No Action omeprazole 40 mg capsule,delayed release(DR/EC) 40 mg PO DAILY atenolol 25 mg tablet 25 mg PO BEDTIME lisinopril 20 mg tablet 20 mg PO BEDTIME metformin 500 mg tablet 500 mg PO BID zolpidem [Ambien] 10 mg tablet 10 mg PO BEDTIME trazodone 100 mg tablet 100 mg PO BEDTIME ropinirole 1 mg tablet 1 mg PO BID potassium chloride 20 mEq tablet,ER particles/crystals 20 meq PO DAILY Calcium 500 500 mg calcium (1,250 mg) Tablet 500 mg PO DAILY Vitamin C 500 mg Tablet 500 mg PO DAILY magnesium 250 mg Tablet 250 mg PO DAILY furosemide 20 mg tablet 20 mg PO DAILY levofloxacin 500 mg tablet 500 mg PO DAILY Vitamin D3 25 mcg (1,000 unit) Capsule 25 mcg PO DAILY buprenorphine HCl 2 mg tablet, sublingual 1 mg SUBLINGUAL Q6H lactulose 10 gram/15 mL solution 15 ml PO DAILY Discharge Orders: Discharge ED (Routine); Ordered 11/20/22 Ordered By: Ken Montelongo Discharge Diet: Regular Discharge Activity: Increase activity as tolerated Patient Instructions: Leg Edema (ED) Activity Restrictions/Additional Instructions: Follow-up with medical provider as directed in the next 5 to 7 days for reevaluation. Elevate legs throughout the day to help with swelling. Wear compression stockings as well. Continue taking all home medications as previously prescribed. Return to the ER or your medical provider if condition worsens. Please read and understand discharge instructions. Thank you for choosing [facility] for your healthcare needs today. Please realize this is an emergency room and that we are providing you with a medical screening exam and this may not be complete and all inclusive of all the testing and or work up that you may need to determine your ailment or severity of your illness. It is very important that you follow up as instructed or that you return to the Emergency Department should you have concerns or if your condition changes or worsens in any way. Coding Level of Care Code ED Family Medicine Physician Assistant for [facility]g [facility]wd Documented by User: Matt Valladares DO 11/22/22 06:08 HPI - Extremity Problem General: Chief complaint: Extremity Problem,Nontraumatic Stated complaint: edema/rash on leg Time Seen by Provider: 11/20/22 13:55 [facility] ED PFSH: Medical History Cirrhosis of liver Surgical History H/O exploratory laparotomy H/O neck surgery Social History Smoking and tobacco status: current some day smoker Alcohol intake: former Course Vital Signs: Vital signs: Vital Signs Temperature 98.2 F 11/20/22 13:47 Pulse Rate 51 L 11/20/22 17:01 Respiratory Rate 16 11/20/22 17:01 Blood Pressure 133/65 11/20/22 17:01 Pulse Oximetry 97 11/20/22 17:01 Oxygen Delivery Me thod Room Air 11/20/22 13:47 MDM - Extremity (Nontraumatic) Medical Decision Making Patient is a 67-year-old male comes to the ED with bilateral lower leg edema. Past medical history of liver cirrhosis. Patient's leg edema is a chronic issue but has gotten a lot worse over the past couple days. Patient is on 20 mg of furosemide a day. Patient also is concerned about his low heart rate that is around 45 bpm. He denies any symptoms. On his right lower leg by medial side of ankle patient has a red rash. Denies any pain with rash, warmth or itching. Patient was first seen at urgent care and they told patient to come here to the ED for further evaluation. Denies any chest pain, shortness of breath, hemoptysis, nausea/vomiting, abdominal pain, bladder or bowel symptoms. Pulse 51 and the rest of vitals are stable. Exam of patient is benign. He appears nontoxic in no acute distress. EKG shows sinus bradycardia with no ST segment ration or depression seen. Dr. Valladares reviewed EKG and agreed. Chest x-ray shows no acute findings. CBC and CMP were unremarkable. Ultrasound venous duplex of lower extremities bilaterally showed no DVTs. BNP 136. Patient given dose of Lasix here in the ED and was stable for discharge home. Diagnosed with bilateral lower extremity edema and told to follow-up with PCP in the next week for reevaluation. Elevate legs to help with swelling and wear compression stockings. Return to ED precautions given. Dr. Valladares reviewed case and agreed with plan. Chart reviewed and patient discussed with midlevel. Agree with assessment and plan. Lab Data 11/20/22 15:00 11/20/22 15:00 Radiology Impressions Chest X-Ray 11/20/22 14:34 IMPRESSION: Unremarkable frontal portable chest x-ray. Laboratory Results WBC 2.3 10^3/uL (4.0-10.0) L 11/20/22 15:00 RBC 3.85 10^6/uL (4.1-5.3) L 11/20/22 15:00 Hgb 9.6 g/dL (11.7-16.6) L 11/20/22 15:00 Hct 30.8 % (42.0-52.0) L 11/20/22 15:00 MCV 80.0 fl (80-94) 11/20/22 15:00 MCH 24.9 pg (28.0-34.0) L 11/20/22 15:00 MCHC 31.2 g/dL (30.0-36.0) 11/20/22 15:00 RDW 15.8 % (12.1-15.1) H 11/20/22 15:00 Plt Count 69 10^3/cmm (130-400) L 11/20/22 15:00 MPV 9.9 fL (7.4-10.4) 11/20/22 15:00 Neut % (Auto) 74.7 % 11/20/22 15:00 Lymph % (Auto) 14.6 % 11/20/22 15:00 [place] % (Auto) 7.3 % 11/20/22 15:00 Eos % (Auto) 2.1 % 11/20/22 15:00 Baso % (Auto) 0.9 % 11/20/22 15:00 Neut # (Auto) 1.74 10^3/uL (1.8-7.7) L 11/20/22 15:00 Lymph # (Auto) 0.3 10^3/uL (0.8-4.8) L 11/20/22 15:00 [place] # (Auto) 0.2 10^3/uL (0.2-0.9) 11/20/22 15:00 Eos # (Auto) 0.1 10^3/uL (0.0-0.8) 11/20/22 15:00 Baso # (Auto) 0.0 10^3/uL (0.0-0.1) 11/20/22 15:00 Nucleated RBC % (auto) 0 % 11/20/22 15:00 Nucleated RBCs # 0.0 /100WBC 11/20/22 15:00 Sodium 137 mmol/L (136-145) 11/20/22 15:00 Potassium 4.4 mmol/L (3.5-5.1) 11/20/22 15:00 Chloride 103 mmol/L (98-107) 11/20/22 15:00 Carbon Dioxide 27 mmol/L (22-29) 11/20/22 15:00 Anion Gap 11.4 (5-19) 11/20/22 15:00 BUN 13 mg/dL (8-23) 11/20/22 15:00 Creatinine 0.6 mg/dL (0.7-1.2) L 11/20/22 15:00 GFR Calculation 135.2 mL/min (90-130) H 11/20/22 15:00 Glucose 101 mg/dL (65-115) 11/20/22 15:00 Calculated Osmolality 284 mOsm/kg (285-295) L 11/20/22 15:00 Calcium 8.7 mg/dL (8.5-10.5) 11/20/22 15:00 Total Bilirubin 0.5 mg/dL (0.15-1.2) 11/20/22 15:00 AST 63 U/L (0-40) H 11/20/22 15:00 ALT 37 U/L (0-41) 11/20/22 15:00 Alkaline Phosphatase 106 U/L (40-130) 11/20/22 15:00 NT-Pro-B Natriuret Pep 136 pg/mL (0-125) H 11/20/22 15:00 Total Protein 7.0 g/dL (6.6-8.7) 11/20/22 15:00 Albumin 3.2 g/dL (3.5-5.2) L 11/20/22 15:00 Globulin 3.8 g/dL (1.3-4.6) 11/20/22 15:00 Discharge Plan Discharge Patient Disposition: Home Clinical Impression: Bilateral leg edema, Rash Condition: Stable Prescriptions: No Action omeprazole 40 mg capsule,delayed release(DR/EC) 40 mg PO DAILY atenolol 25 mg tablet 25 mg PO BEDTIME lisinopril 20 mg tablet 20 mg PO BEDTIME metformin 500 mg tablet 500 mg PO BID zolpidem [Ambien] 10 mg tablet 10 mg PO BEDTIME trazodone 100 mg tablet 100 mg PO BEDTIME ropinirole 1 mg tablet 1 mg PO BID potassium chloride 20 mEq tablet,ER particles/crystals 20 meq PO DAILY Calcium 500 500 mg calcium (1,250 mg) Tablet 500 mg PO DAILY Vitamin C 500 mg Tablet 500 mg PO DAILY magnesium 250 mg Tablet 250 mg PO DAILY furosemide 20 mg tablet 20 mg PO DAILY levofloxacin 500 mg tablet 500 mg PO DAILY Vitamin D3 25 mcg (1,000 unit) Capsule 25 mcg PO DAILY buprenorphine HCl 2 mg tablet, sublingual 1 mg SUBLINGUAL Q6H lactulose 10 gram/15 mL solution 15 ml PO DAILY Discharge Orders: Discharge ED (Routine); Ordered 04/11/23 Ordered By: Ken Montelongo Discharge Diet: Regular Discharge Activity: Increase activity as tolerated Patient Instructions: Leg Edema (ED) Activity Restrictions/Additional Instructions: Follow-up with medical provider as directed in the next 5 to 7 days for reevaluation. Elevate legs throughout the day to help with swelling. Wear compression stockings as well. Continue taking all home medications as previously prescribed. Return to the ER or your medical provider if condition worsens. Please read and understand discharge instructions. Thank you for choosing [facility] for your healthcare needs today. Please realize this is an emergency room and that we are providing you with a medical screening exam and this may not be complete and all inclusive of all the testing and or work up that you may need to determine your ailment or severity of your illness. It is very important that you follow up as instructed or that you return to the Emergency Department should you have concerns or if your condition changes or worsens in any way. Coding Level of Care Code ED Family Medicine Physician Assistant for Sandro Rod
[2022-11-20 15:10] LABS: Basophils % 0.9 %; Eosinophils # 0.1 10^3/uL (0.0-0.8); Eosinophils % 2.1 %; Hematocrit 30.8 % (42.0-52.0); Hemoglobin 9.6 g/dL (11.7-16.6); Lymphocytes # 0.3 10^3/uL (0.8-4.8); Lymphocytes % 14.6 %; Mean Corpuscular HGB Conc 31.2 g/dL (30.0-36.0); Mean Corpuscular Hemoglobin 24.9 pg (28.0-34.0); Mean Platelet Volume 9.9 fL (7.4-10.4); Monocytes # 0.2 10^3/uL (0.2-0.9); Monocytes % 7.3 %; Neutrophils # 1.74 10^3/uL (1.8-7.7); Neutrophils % 74.7 %; Nucleated Red Blood Cells % 0 %; Platelet Count 69 10^3/cmm (130-400); Red Blood Count 3.85 10^6/uL (4.1-5.3); Red Cell Distribution Width 15.8 % (12.1-15.1); White Blood Count 2.3 10^3/uL (4.0-10.0)
[2022-11-20 15:37] LABS: Alanine Aminotransferase 37 U/L (0-41); Albumin Level 3.2 g/dL (3.5-5.2); Alkaline Phosphatase 106 U/L (40-130); Anion Gap 11.4 (5-19); Aspartate Amino Transferase 63 U/L (0-40); Blood Urea Nitrogen 13 mg/dL (8-23); Calcium 8.7 mg/dL (8.5-10.5); Carbon Dioxide 27 mmol/L (22-29); Chloride 103 mmol/L (98-107); Globulin 3.8 g/dL (1.3-4.6); Glomerular Filtration Rate 135.2 mL/min (90-130); Glucose 101 mg/dL (65-115); NT Pro B Type Natriuretic Pept 136 pg/mL (0-125); Osmolality Calculated 284 mOsm/kg (285-295); Potassium 4.4 mmol/L (3.5-5.1); Sodium 137 mmol/L (136-145); Total Bilirubin 0.5 mg/dL (0.15-1.2)
[2022-11-20] MEDS: FUROsemide 40 mg Tablet PO (16:30)
[2022-11-20 17:01] VITALS: BP 133/65; PULSE 51; RESP 16; O2SAT 97
--- NOTE | 2022-11-27 14:10 | DCPLANNER ---
sporting goods sales manager called patient due to no primary care physician. sporting goods sales manager spoke with patients , who stated that patient sees Dr. Brown.
== END 2022-11-20 17:02 | disposition home or self-care (01) ==
PROVIDERS: Emergency Provider Physician Assistant
DX: R60.0 Localized edema (principal); R21 Rash and other nonspecific skin eruption; Z79.84 Long term (current) use of oral hypoglycemic drugs; F17.210 Nicotine dependence, cigarettes, uncomplicated
CPT/HCPCS: 36415; 71045; 80053; 83880; 85025; 93005; 93970; 99285